=== PATIENT | female | born 1990 | race Caucasian/White ===

== ENCOUNTER → 2020-07-25 | Outpatient (CLI) | payer OTHER ==
--- NOTE | 2020-07-25 15:35 | REP ---
INDICATION: DATING VIABILITY. COMPARISON: None TECHNIQUE: Transvesical and transvaginal imaging FINDINGS: The uterus measures 8.9 x 4.6 x 5.6 cm. Within the uterus there is an anechoic structure with increased echoes surrounding it but only partially. The mean diameter of this anechoic structure is consistent with a 5 week 2 day gestational age. There is no evidence of a pole. Doppler interrogation of this anechoic structure shows no evidence of cardiac activity. The right ovary measures 4 x 1.8 x 2.4 cm. Within the right ovary there is a 2.2 x 1.4 x 1.7 cm anechoic structure. Cries The left ovary measures 1.9 x 1.6 x 2.6 cm and is within normal limits. The right ovarian RI is 0.51 on the left is 0.45. IMPRESSION: There is a small anechoic structure within the endometrial cavity, as described above, without evidence of a concomitant pole. Early gestational sac versus blighted ovum follow-up is recommended. <Electronically signed by Ej Avalos > 07/25/20 0445
== END ==
LOC: M RAD 14:03
PROVIDERS: ATTEND Physician Assistant Medical
DX: Z32.01 Encounter for pregnancy test, result positive (principal)

== ENCOUNTER → 2020-07-30 | Outpatient (CLI) | payer OTHER ==
[2020-07-30 14:23] LABS: HCG, SERUM QUALITATIVE POSITIVE (NEGATIVE)
[2020-07-31 12:40] LABS: HCG, SERUM QUANTITATIVE 166 MIU/ML
== END ==
LOC: M LAB 13:27
PROVIDERS: ATTEND Physician Assistant Medical
DX: Z64.0 Problems related to unwanted pregnancy (principal); Z33.2 Encounter for elective termination of pregnancy